=== PATIENT | male | born 1990 | race Caucasian/White ===

== ENCOUNTER 2021-11-28 09:49 | Emergency (ER) | payer MEDICARE, MEDICAID ==
[~2021-11-28] VITALS: Ht 172.7 cm; Wt 87.6 kg
[~2021-11-28 09:49] MED LIST: CLON-527 PO; IBUP-812 PO; LEVE500T PO; LORA1TAB PO; LURA40TA PO; QUET-1 PO; TEG100T PO
[2021-11-28 09:55] VITALS: BP 107/62
--- NOTE | 2021-11-28 10:24 | NUR ---
PT WAS BROUGHT IN TODAY FOR CO OF A RASH. PT IS IN HIS ROOM WITH TWO CAREGIVERS. PT DOES NOT APPEAR TO BE IN DISTRESS, AND IS CURRENTLY SITTING ON THE GURNEY WITH THEIR TABLET. Addendum: 11/28/21 at 1027 by MARILYNN PT WAS BROUGHT IN TODAY FOR CO OF A RASH, AND DOES HAVE A HISTORY OF AGGRESSIVE BEHAVIOR. PT IS IN HIS ROOM WITH TWO CAREGIVERS. PT DOES NOT APPEAR TO BE IN DISTRESS, AND IS CURRENTLY SITTING ON THE GURNEY WITH THEIR TABLET. PT WILL BE MONITORED FOR CHANGE OF DISPOSITION.
[2021-11-28] MEDS ORDERED: CEPH-585 PO (11:46)
== END 2021-11-28 12:07 | disposition home or self-care (01) ==
LOC: ER 09:50
DX: L03.312 Cellulitis of back [any part except buttock and flank] (principal); F20.9 Schizophrenia, unspecified; Z86.69 Personal history of other diseases of the nervous system and sense organs; Z88.5 Allergy status to narcotic agent; Z88.8 Allergy status to other drugs, medicaments and biological substances; Z79.2 Long term (current) use of antibiotics; Z79.899 Other long term (current) drug therapy
CPT/HCPCS: 99284

== ENCOUNTER 2021-12-09 10:21 | Emergency (ER) | payer MEDICARE, MEDICAID ==
[~2021-12-09] VITALS: Ht 172.7 cm; Wt 87.0 kg
[~2021-12-09 10:21] MED LIST changes: +CEPH-585 PO
--- NOTE | 2021-12-09 12:40 | NUR ---
PT WAS SEEN HERE LAST WEEK FOR SAME SYMPTOMS BUT NOW AVE WORSENED. MASS NOTED ON RIGHT SIDE OF ABD 1.5 CM BY 16.5. MASS ON LEFT SIDE OF ABD 1CM BY 9.5 CM. PT STATES," IT HURTS IN THE LOW BACK ON A SCALE OF 10/10. PAIN OCCURS EVERY MORNING WHEN PT GETS UP. PT WILL BE WOKEN UP FROM THE PAIN. AND A FEW TIMES DURING THE DAYAND HURTS EVERY NIGHT. "
[2021-12-09] MEDS ORDERED: iohexol 300mg/ml 100ml inj. ONE (14:48)
[2021-12-09 14:54] LABS: BASOPHILS % (AUTO) 0.5 % (0-1); EOSINOPHILS # (AUTO) 0.1 X10'3 (0-0.9); EOSINOPHILS % (AUTO) 2.2 % (0-6); HEMATOCRIT 35.6 % (42.0-52.0); HEMOGLOBIN 11.9 g/dl (14.0-17.9); LYMPHOCYTES # (AUTO) 1.6 X10'3 (1.1-4.8); LYMPHOCYTES % (AUTO) 24.4 % (21-51); MEAN CORPUSCULAR HGB CONC 33.3 g/dL (33.0-36.5); MEAN PLATELET VOLUME 8.5 FL (7.4-10.4); MONOCYTES # (AUTO) 0.7 X10'3 (0-0.9); MONOCYTES % (AUTO) 11.1 % (2-12); NEUTROPHILS # (AUTO) 4.1 X10'3 (1.8-7.7); NEUTROPHILS % (AUTO) 61.8 % (42-75); PLATELET COUNT 191 X10'3 (140-440); RED BLOOD COUNT 4.09 X10'6 (4.70-6.10); RED CELL DISTRIBUTION WIDTH 13.5 % (11.5-14.5); WHITE BLOOD COUNT 6.7 X10'3 (4.5-11.0)
[2021-12-09] MEDS ORDERED: ketorolac tromethamine 15mg/ml inj. IV ONE (14:55)
[2021-12-09] MEDS ORDERED: dexamethasone 4mg/ml inj IV ONE (15:00)
[2021-12-09] MEDS ORDERED: famotidine/PF 10 mg/ml inj IV ONE (15:00)
[2021-12-09 15:10] LABS: ALANINE AMINOTRANSFERASE 19 U/L (12-78); ALBUMIN 3.3 G/DL (3.4-5.0); ALBUMIN/GLOBULIN RATIO 0.9 (1.1-1.5); ALKALINE PHOSPHATASE 75 IU/L (46-116); ANION GAP 8 (8-16); ASPARTATE AMINO TRANSFERASE 17 U/L (10-37); BILIRUBIN,TOTAL 0.1 MG/DL (0.1-1.0); BLOOD UREA NITROGEN 16 MG/DL (7-18); CALCIUM 8.6 MG/DL (8.5-10.1); CHLORIDE 106 MMOL/L (99-107); GLUCOSE 88 MG/DL (70-104); LIPASE 109 U/L (73-393); SODIUM 140 MMOL/L (135-145); TOTAL CARBON DIOXIDE 26.5 MMOL/L (24-32); eGFR > 90 ML/MIN
[2021-12-09] MEDS ORDERED: PRED20TA PO (16:07)
[2021-12-09] MEDS ORDERED: FAMO20TA8 PO (16:07)
[2021-12-09 16:10] LABS: CLARITY,URINE CLOUDY (Clear); COLOR,URINE YELLOW (Yellow); GLUCOSE, URINE NEGATIVE (Neg); KETONES,URINE NEGATIVE (Neg); LEUKOCYTE ESTERASE ,URINE NEGATIVE (Neg); NITRITES, URINE NEGATIVE (Neg); OCCULT BLOOD,URINE NEGATIVE (Neg); PH,URINE 7.5 (4.8-8.0); PROTEIN,URINE NEGATIVE (Neg); UROBILINOGEN,URINE 0.2 E.U/dL (0.2-1.0)
[2021-12-09 16:13] LABS: UA COLLECTION TYPE CLN CATCH MIDSTREAM
[2021-12-09 16:17] LABS: MUCUS STRANDS FEW /LPF (Neg); SQUAMOUS EPITHELIAL CELL,UR FEW /LPF (FEW)
[2021-12-09 16:18] LABS: AMORPHOUS PHOSPHATES 2+
[2021-12-09 16:19] LABS: BACTERIA,URINE FEW /HPF (Neg); RBC,URINE 0-2 /HPF (0-2); WBC,URINE 0-4 /HPF (0-4)
[2021-12-09 16:32] VITALS: BP 119/74
== END 2021-12-09 16:37 | disposition home or self-care (01) ==
LOC: ER 10:22
DX: L25.9 Unspecified contact dermatitis, unspecified cause (principal); Z88.5 Allergy status to narcotic agent; Z88.8 Allergy status to other drugs, medicaments and biological substances
CPT/HCPCS: 36415; 74177; 80053; 81001; 83690; 85025; 96374; 96375; 99285; J1100; J1885; J3490; Q9967

== ENCOUNTER 2023-03-15 09:40 | Emergency (ER) | payer MEDICARE, MEDICAID ==
[~2023-03-15] VITALS: Ht 170.2 cm; Wt 99.2 kg
[~2023-03-15 09:40] MED LIST changes: -CEPH-585 PO; +FAMO20TA8 PO
[2023-03-15 10:38] LABS: BASOPHILS % (AUTO) 0.5 % (0-1); EOSINOPHILS # (AUTO) 0.1 X10'3 (0-0.9); EOSINOPHILS % (AUTO) 1.6 % (0-6); HEMATOCRIT 40.9 % (42.0-52.0); HEMOGLOBIN 13.6 g/dl (14.0-17.9); LYMPHOCYTES # (AUTO) 1.7 X10'3 (1.1-4.8); LYMPHOCYTES % (AUTO) 22.3 % (21-51); MEAN CORPUSCULAR HEMOGLOBIN 29.2 PG (27.0-31.0); MEAN CORPUSCULAR HGB CONC 33.2 g/dL (33.0-36.5); MEAN CORPUSCULAR VOLUME 87.9 FL (78-98); MEAN PLATELET VOLUME 8.8 FL (7.4-10.4); MONOCYTES # (AUTO) 0.6 X10'3 (0-0.9); MONOCYTES % (AUTO) 8.1 % (2-12); NEUTROPHILS # (AUTO) 5.3 X10'3 (1.8-7.7); NEUTROPHILS % (AUTO) 67.5 % (42-75); PLATELET COUNT 202 X10'3 (140-440); RED BLOOD COUNT 4.65 X10'6 (4.70-6.10); RED CELL DISTRIBUTION WIDTH 13.5 % (11.5-14.5); WHITE BLOOD COUNT 7.8 X10'3 (4.5-11.0)
[2023-03-15 10:53] LABS: ALANINE AMINOTRANSFERASE 34 U/L (12-78); ALBUMIN 3.7 G/DL (3.4-5.0); ALBUMIN/GLOBULIN RATIO 0.8 (1.1-1.5); ALKALINE PHOSPHATASE 67 IU/L (46-116); ANION GAP 12 (8-16); ASPARTATE AMINO TRANSFERASE 26 U/L (10-37); BILIRUBIN,TOTAL 0.3 MG/DL (0.1-1.0); BLOOD UREA NITROGEN 21 MG/DL (7-18); BUN/CREATININE RATIO 22.3 (10.0-20.0); CALCIUM 9.3 MG/DL (8.5-10.1); CHLORIDE 106 MMOL/L (99-107); CREATININE 0.94 MG/DL (0.60-1.10); GLUCOSE 89 MG/DL (70-104); POTASSIUM 4.1 MMOL/L (3.5-5.1); SODIUM 144 MMOL/L (135-145); TOTAL CARBON DIOXIDE 25.8 MMOL/L (24-32); TOTAL PROTEIN 8.1 G/DL (6.4-8.2); eCRCL 105 ML/MIN; eGFR > 90 ML/MIN
[2023-03-15 11:00] LABS: PRO BRAIN NATRIURETIC PEPTIDE 32 PG/ML (0-125)
[2023-03-15 13:18] VITALS: TEMP 96.4
[2023-03-15] MEDS ORDERED: normal saline 1000ML IV soln IVB ONE (13:50)
[2023-03-15 17:23] VITALS: BP 119/84; PULSE 63; RESP 17; O2SAT 96
== END 2023-03-15 18:55 | disposition home or self-care (01) ==
LOC: ER 09:40
DX: T43.221A Poisoning by selective serotonin reuptake inhibitors, accidental (unintentional), initial encounter (principal); T42.4X1A Poisoning by benzodiazepines, accidental (unintentional), initial encounter; R40.0 Somnolence; Z72.89 Other problems related to lifestyle; Z88.5 Allergy status to narcotic agent; Z88.8 Allergy status to other drugs, medicaments and biological substances; Z79.899 Other long term (current) drug therapy; Y92.89 Other specified places as the place of occurrence of the external cause
CPT/HCPCS: 36415; 71045; 80053; 83880; 84484; 85025; 93005; 96360; 99285; J7030

== ENCOUNTER 2024-01-11 09:54 | Emergency (ER) | payer MEDICARE, MEDICAID ==
[~2024-01-11] VITALS: Ht 175.3 cm; Wt 96.5 kg
[2024-01-11 10:03] VITALS: BP 131/72; PULSE 83; TEMP 97.2; O2SAT 98
[2024-01-11 10:35] VITALS: RESP 16
[2024-01-11] MEDS: ketorolac trometh 15mg/ml vial 15 MG/ML ML IM ONE (10:35)
[2024-01-11] MEDS: ketorolac trometh 15mg/ml vial 15 MG/ML ML ONE (10:50)
== END 2024-01-11 10:52 | disposition home or self-care (01) ==
LOC: ER 09:54
DX: M79.672 Pain in left foot (principal); M25.572 Pain in left ankle and joints of left foot; F20.9 Schizophrenia, unspecified; Z88.5 Allergy status to narcotic agent; Z88.6 Allergy status to analgesic agent; Z79.899 Other long term (current) drug therapy
CPT/HCPCS: 73630; 96372; 99283; J1885